=== PATIENT | male | born 1935 | race African-American/Black ===

== ENCOUNTER 2018-05-22 12:14 | Inpatient (IN) | payer MEDICARE, OTHER ==
[~2018-05-22] VITALS: Ht 188 cm; Wt 81.6 kg
[2018-05-22] MEDS ORDERED: NITROGLYCERIN 0.4 MG/TAB BOTTLE SL ONE (12:30)
[2018-05-22] MEDS ORDERED: ASPIRIN 81 MG TAB.CHEW PO ONE (12:30)
[2018-05-22] MEDS ORDERED: ASPIRIN 325 MG TABLET ONE (12:38)
[2018-05-22] MEDS ORDERED: NITROGLYCERIN 0.4 MG/TAB BOTTLE ONE (12:38)
[2018-05-22 12:44] LABS: BASOPHILS % (AUTO) 0.6 % (0.0-2.0); EOSINOPHILS % (AUTO) 2.1 % (0.0-6.0); HEMATOCRIT 44 % (39-51); HEMOGLOBIN 13.8 g/dL (13.5-17.5); LYMPHOCYTES # (AUTO) 1.4 /CMM (0.8-4.8); LYMPHOCYTES % (AUTO) 32.8 % (20.0-44.0); MEAN CORPUSCULAR HEMOGLOBIN 27 PG (26.0-33.0); MEAN CORPUSCULAR HGB CONC 31 g/dl (31.0-36.0); MEAN CORPUSCULAR VOLUME 85 fL (80-96); MONOCYTES # (AUTO) 0.3 /CMM (0.1-1.30); NEUTROPHILS # (AUTO) 2.4 /CMM (1.8-8.9); NEUTROPHILS % (AUTO) 57.5 % (43.0-81.0); PLATELET COUNT (AUTO) 189 /CMM (150-450); RDW COEFFICIENT OF VARIATION 12.2 (11.5-15.0); WHITE BLOOD COUNT (AUTO) 4.2 K/uL (4.3-11.0)
[2018-05-22 12:49] LABS: CALCIUM, SERUM 9.2 mg/dL (8.5-10.1); CARBON DIOXIDE 32 mmol/L (21-32); CHLORIDE 109 mmol/L (98-107); CREATININE 1.3 mg/dL (0.6-1.3); GLUCOSE 92 mg/dL (74-106); POTASSIUM 4.2 mmol/L (3.5-5.1); SODIUM SERUM 140 mmol/L (136-145); UREA NITROGEN, BLOOD 19 mg/dL (7-18)
[2018-05-22 12:52] LABS: INR 1.02 (0.85-1.15)
[2018-05-22 12:57] LABS: TROPONIN I < 0.017 ng/mL (0.00-0.056)
[2018-05-22] MEDS ORDERED: MORPHINE SULFATE INJ 2 MG/ML DISP.SYRIN IV ONE (13:00)
[2018-05-22] MEDS ORDERED: ONDANSETRON HCL/PF - ER 4 MG/2 ML VIAL IV ONE (13:00)
--- NOTE | 2018-05-22 13:00 | NUR ---
PT TO ED DT CHEST PAIN, 3/10, RADIATING TO LEFT ARM X 3 DAYS.VSS
[2018-05-22] MEDS ORDERED: ONDANSETRON HCL/PF 4 MG/2 ML VIAL ONE (13:01)
[2018-05-22] MEDS ORDERED: MORPHINE SULFATE INJ 4 MG/ML DISP.SYRIN ONE (13:01)
[2018-05-22 13:02] LABS: B-TYPE NATRIURETIC PEPTIDE 210 PG/ML (0-125)
[2018-05-22] MEDS ORDERED: ZOLPIDEM TARTRATE 5 MG TABLET PO PRN (14:30)
[2018-05-22] MEDS ORDERED: ACETAMINOPHEN 325 MG TABLET PO PRN (14:30)
[2018-05-22] MEDS ORDERED: MORPHINE SULFATE INJ 2 MG/ML DISP.SYRIN IV PRN (14:30)
[2018-05-22] MEDS ORDERED: MAG HYDROX/AL HYDROX/SIMETH 30 ML UDC PO PRN (14:30)
[2018-05-22] MEDS ORDERED: ONDANSETRON HCL/PF 4 MG/2 ML VIAL IVP PRN (14:30)
[2018-05-22] MEDS ORDERED: Z GUARD REMEDY 2 OZ OINT TP PRN (14:30)
[2018-05-22] MEDS ORDERED: HYDROCODONE/APAP 5/325MG 1 EACH TABLET PO PRN (14:30)
[2018-05-22] MEDS ORDERED: MAGNESIUM HYDROXIDE 30 ML UDC PO PRN (14:30)
--- NOTE | 2018-05-22 14:30 | NUR ---
telephone triage nursern emergency room notes Admitted a 82 years old male patient who came in via gurney accompanied by ER nurse, patient came in due to Chest pain, alert and oriented x 4, verbally responsive and able to make needs known. No complaint of pain or discomfort noted. Lungs are clear upon auscultation, no abdominal distention noted. On room air, with 02 sat of 98%. Dr. Larson aware of the admission and admission orders on file. Skin intact. Vital signs checked and recorded. On tele monitor SB heart rate of 45. Call light with in patient reach, will continue to monitor accordingly.
[2018-05-22] MEDS: ENOXAPARIN SODIUM 40 MG/0.4 ML DISP.SYRIN SQ SCH (15:19)
[2018-05-22 16:00] VITALS: BP_SYST 125; BP_SYST 136; BP_DIAS 67; BP_DIAS 71
[2018-05-22] MEDS: SUCRALFATE 1 G TABLET PO SCH (17:32)
[2018-05-22 18:32] LABS: MAGNESIUM 2.1 mg/dL (1.8-2.4); PHOSPHORUS 3.8 mg/dL (2.5-4.9)
--- NOTE | 2018-05-22 19:16 | NUR ---
telegraph inspector closing notes All needs provided, attended, and anticipated. Patient in stable condition at this time. Endorsed to next shift RN to continue care. Call light with in patient reach. On tele monitor SB heart rate of 47.
--- NOTE | 2018-05-22 19:20 | NUR ---
RN OPENING NOTES RECEIVED PT IN BED, ALERT AND ORIENTED X 3, NO SOB, DENIES CHEST PAIN OR DIZZINESS. IN NO ACUTE DISTRESS AT THIS TIME. ALL PATIENT'S NEEDS ATTENDED TO. ON TELE MONITORING SB @ 48 BPM. PLACED CALL LIGHT WITHIN EASY REACH. BED IN LOW POSITION AND LOCKED IN PLACE. WILL CONTINUE TO MONITOR.
[2018-05-22 19:41] LABS: THYROID STIMULATING HORMONE 2.042 uIU/mL (0.358-3.74)
[2018-05-22 20:00] VITALS: BP 135/70
[2018-05-22] MEDS: IV NS 0.9% 1,000 ML IV PRN (20:42)
[2018-05-23] VITALS: BP 140/72
[2018-05-23 04:00] VITALS: BP 129/69
--- NOTE | 2018-05-23 06:36 | NUR ---
RN CLOSING NOTES PATIENT ASLEEP IN BED BUT EASILY AROUSABLE/. ABLE TO AMBULATE INDEPENDENTLY TO USE THE BATHROOM. PT IN NO ACUTE DISTRESS, NO SOB, NO C/O CHEST PAIN THROUGHOUT THE SHIFT, NO NAUSEA NAD NO DIARRHEA. ALL PATIENT'S NEEDS ATTENDED TO, PLACED BED IN LOW POSITION AND LOCKED IN PLACE. CONTINUES TO RECEIVE IVF HYDRATION ORDERED VIA LAC G#20, INFUSING WELL. PLACED BED IN LOW POSITION AND LOCKED IN PLACE, CALL LIGHT WITHIN EASY REACH. ON TELE MONITORING SB @ 45. WILL ENDORSE TO AM SHIFT NURSE FOR CONTINUITY OF CARE.
[2018-05-23] MEDS: IV NS 0.9% 1,000 ML IV PRN (06:44)
[2018-05-23 06:59] LABS: CHOLESTEROL 88 mg/dL (<200); HDL CHOLESTEROL 36 mg/dL (40-60); LDL 44 mg/dL (0-99); THYROID STIMULATING HORMONE 2.298 uIU/mL (0.358-3.74); TRIGLYCERIDES 121 mg/dL (30-150)
[2018-05-23 07:06] LABS: CALCIUM, SERUM 8.7 mg/dL (8.5-10.1); CARBON DIOXIDE 24 mmol/L (21-32); CHLORIDE 109 mmol/L (98-107); CREATININE 1.4 mg/dL (0.6-1.3); GLUCOSE 98 mg/dL (74-106); MAGNESIUM 1.8 mg/dL (1.8-2.4); POTASSIUM 3.9 mmol/L (3.5-5.1); SODIUM SERUM 143 mmol/L (136-145); UREA NITROGEN, BLOOD 25 mg/dL (7-18)
--- NOTE | 2018-05-23 07:10 | NUR ---
ms rn initial notes Received patient in bed, asleep, head of bed elevated, no SOB or distress noted, on room air and tolerated well. IV intact and patent with IVF infusing well. No facial grimace noted. Alert and oriented x 4, verbally responsive and able to make needs known. Call light with in patient reach, will continue to monitor accordingly.
[2018-05-23 07:36] LABS: HEMATOCRIT 41 % (39-51); HEMOGLOBIN 13.6 g/dL (13.5-17.5); MEAN CORPUSCULAR HEMOGLOBIN 28 PG (26.0-33.0); MEAN CORPUSCULAR HGB CONC 34 g/dl (31.0-36.0); MEAN CORPUSCULAR VOLUME 84 fL (80-96); RED BLOOD CELL COUNT(AUTO) 4.85 MIL/uL (4.5-6.0); WHITE BLOOD COUNT (AUTO) 3.5 K/uL (4.3-11.0)
[2018-05-23 07:37] LABS: BASOPHILS % (AUTO) 1.1 % (0.0-2.0); EOSINOPHILS % (AUTO) 4.9 % (0.0-6.0); LYMPHOCYTES % (AUTO) 43.3 % (20.0-44.0); MONOCYTES % (AUTO) 10.3 % (2.0-12.0); NEUTROPHILS % (AUTO) 40.4 % (43.0-81.0); PLATELET COUNT (AUTO) 149 /CMM (150-450); RDW COEFFICIENT OF VARIATION 13.2 (11.5-15.0)
[2018-05-23] MEDS ORDERED: CILO50TA PO (07:39)
[2018-05-23] MEDS ORDERED: FURO20TA4 PO (07:39)
[2018-05-23] MEDS ORDERED: LOSA50TA21 PO (07:39)
[2018-05-23] MEDS ORDERED: PREG150C PO (07:39)
[2018-05-23] MEDS ORDERED: TAMS0.4C34 PO (07:39)
[2018-05-23 08:00] VITALS: BP 149/73
[2018-05-23] MEDS ORDERED: REGADENOSON 0.4 MG/5 ML DISP.SYRIN IVP ONE (08:00)
[2018-05-23] MEDS ORDERED: PREGABALIN 25 MG CAPSULE PO SCH (09:00)
[2018-05-23] MEDS ORDERED: ASPIRIN EC 81 MG TABLET.DR PO SCH (09:00)
[2018-05-23] MEDS: TAMSULOSIN 0.4 MG CAP.SR.24H PO SCH (09:56)
[2018-05-23] MEDS: SUCRALFATE 1 G TABLET PO SCH ×3 (09:57→16:42)
[2018-05-23] MEDS: LOSARTAN POTASSIUM 50 MG TABLET PO SCH ×2 (09:57→16:43)
[2018-05-23] MEDS: ASPIRIN 81 MG TAB.CHEW PO SCH (09:57)
[2018-05-23] MEDS: ENOXAPARIN SODIUM 40 MG/0.4 ML DISP.SYRIN SQ SCH (09:58)
[2018-05-23 16:00] VITALS: BP 160/74
--- NOTE | 2018-05-23 19:10 | NUR ---
MS RN OPENING NOTE Patient was seen ambulating to the bathroom with steady gait and returned to bed. Patient is AAOx4, breathing on RA with no SOB, and no signs of acute distress. IV in the left AC is connected to NS at 100ml/hr with no signs of leaking or infiltration. Bed is low/locked, two side rails up, and call berger within reach. Patient has no immediate needs or concerns at this time. Will continue to monitor.
--- NOTE | 2018-05-23 19:15 | NUR ---
ms rn closing notes All needs provided, attended, and anticipated. Patient in stable condition. Endorsed to human machine interface engineer RN to continue care. Call light with in patient reach.
[2018-05-23 20:00] VITALS: BP 155/68
[2018-05-23] MEDS ORDERED: IBUPROFEN 400 MG TABLET PO PRN (21:30)
[2018-05-23 21:41] VITALS: BP 155/68
[2018-05-24] MEDS: IV NS 0.9% 1,000 ML IV PRN ×2 (04:59→17:22)
[2018-05-24 06:42] LABS: ALANINE AMINOTRANSFERASE 36 U/L (12-78); ALBUMIN 2.9 g/dL (3.4-5.0); ALKALINE PHOSPHATASE 57 U/L (46-116); ASPARTATE AMINOTRANSFERASE 35 U/L (15-37); BILIRUBIN,TOTAL 0.4 mg/dL (0.2-1.0); CALCIUM, SERUM 9.1 mg/dL (8.5-10.1); CARBON DIOXIDE 24 mmol/L (21-32); CHLORIDE 108 mmol/L (98-107); CREATININE 1.3 mg/dL (0.6-1.3); GLUCOSE 93 mg/dL (74-106); MAGNESIUM 1.8 mg/dL (1.8-2.4); PHOSPHORUS 3.1 mg/dL (2.5-4.9); POTASSIUM 4.3 mmol/L (3.5-5.1); SODIUM SERUM 140 mmol/L (136-145); TOTAL PROTEIN, SERUM 6.3 g/dL (6.4-8.2); UREA NITROGEN, BLOOD 20 mg/dL (7-18)
--- NOTE | 2018-05-24 07:30 | NUR ---
MS RN CLOSING NOTE Patient is sleeping but awakens easily to name. He is oriented x4, breathing comfortably on RA with no SOB, and no signs of acute distress. Patient slept well overnight with no complications and vital signs remain stable. NS at 100ml/hr is running through the left AC with no signs of leaking or infiltration. Bed is low/locked, two side rails up, and call berger is within reach. Patient care endorsed to day shift nurse.
[2018-05-24 08:00] VITALS: BP 148/77
[2018-05-24] MEDS: SUCRALFATE 1 G TABLET PO SCH ×3 (08:18→17:37)
[2018-05-24] MEDS: ASPIRIN 81 MG TAB.CHEW PO SCH (08:18)
[2018-05-24] MEDS: LOSARTAN POTASSIUM 50 MG TABLET PO SCH ×2 (08:19→17:37)
[2018-05-24] MEDS: TAMSULOSIN 0.4 MG CAP.SR.24H PO SCH (08:19)
--- NOTE | 2018-05-24 08:20 | NUR ---
MS RN Initial notes Patient is sitting up in bed, consumed 100% of his breakfast. Breathing on room air, tolerating well, denies SOB. Due meds given, no complaint of chest pain. Per patient he still having some tingling sensation on his mid back, but no pain. Awaits Xray spine today. Call light within reach, will cont to monitor.
[2018-05-24] MEDS: ENOXAPARIN SODIUM 40 MG/0.4 ML DISP.SYRIN SQ SCH (08:24)
--- NOTE | 2018-05-24 11:37 | NUR ---
Social service consult requested by AMANDA Shukla due to pt. living in his car. Pt. is a 82 year old -[place] Citizen male who was admitted to [facility] for chest pain. SW met with pt. bedside. Pt. is alert and oriented x 4. Pt. is soft spoken, cooperative and pleasant with SW during the assessment. Pt. states he has been living in his car for the past year or two by choice. Pt. states he was living at a senior housing ([facility]) but made complaints to the ombudsman regarding his treatment at the facility and left the facility. Pt. receives around $900/ month in SSI. Pt. is but and states he is disappointed in his . Pt. is willing to go a a [facility] facility if deemed appropriate. Pt. is a strong believer of Jevon and states he has great bradley in him. Pt. denies using drugs and alcohol. Pt. smokes approximately 5 to 6 cigarettes per day, but states he is trying to quit. Pt. shows signs of paranoia stating, " someone has poisoned my car and is making me sick." Pt. has a diagnosis of Depression and stated, " I am loaded with Depression." Pt. states he has lost his bradley in people. Pt. denies suicidal and homicidal ideations and adamantly stated, " I am not suicidal, I have Jevon." Pt. denies vision and auditory hallucinations as well. No other social service needs are requested at this time. FEROZ updated AMANDA Shukla and LEONIE Bowman regarding pt. interested in SNF placement.
[2018-05-24 15:33] VITALS: BP 163/82
--- NOTE | 2018-05-24 18:22 | NUR ---
MS RN Closing notes Patient denies chest pain or any discomfort, cooperative and calm. Breathing on room air, no shortness breath. Ambulating independently, voided without difficulty, no stool today. Good appetite, skin intact. Maintained IVF infusing. For psych consult, CM for placement. Call light within reach, will endorse to oncoming RN.
--- NOTE | 2018-05-24 19:15 | NUR ---
RN INITIAL NOTES Patient received in bed, alert, oriented x 4. Breathing even and unlabored. Not in any distress. Denies any pain as of this time. Peripheral IV of NS infusing at 100mL/hr. Patient stable as endorsed by the morning RN. Will continue to monitor accordingly
[2018-05-24 20:00] VITALS: BP 166/82
[2018-05-24 20:46] VITALS: BP 166/82
[2018-05-24 21:23] VITALS: BP 160/74
--- NOTE | 2018-05-24 21:24 | NUR ---
RN NOTES Patient's blood pressure rechecked: 160/74. No complaints of chest pain
[2018-05-25 02:40] VITALS: BP 153/79
--- NOTE | 2018-05-25 02:40 | NUR ---
RN NOTES Patient complaining of chest pain 04/14, sharp, non-radiating. As per patient, "it just happened suddenly." V/S checked: BP- 153/79, HR- 60, SPO2- 96%. 2L oxygen given via NC. Nitroglycerin sublingual 0.4mg given as ordered. V/S rechecked after 5mins: 151/85, HR-61, SPO2-96%. Patient still complaining of pain but "easing a little bit". Another dose of Nitroglycerin 0.4mg given as ordered. V/S checked after 5 mins; BP- 128/79, HR- 62, SPO2- 97%. After second dose, patient denies any pain. V/S rechecked: BP- 128/78, HR-62, SPO2- 97%. Addendum: 05/25/18 at 0315 by KELLEY DE LOS SANTOS RN ADDITIONAL NOTES: Charge nurse Maria Esther deluca
[2018-05-25 02:42] VITALS: BP 151/85
[2018-05-25] MEDS: NITROGLYCERIN 0.4 MG/TAB BOTTLE SL PRN ×2 (02:42→02:47)
[2018-05-25 02:47] VITALS: BP 128/79
[2018-05-25 02:52] VITALS: BP 128/78
[2018-05-25] MEDS: IV NS 0.9% 1,000 ML IV PRN (03:35)
[2018-05-25 06:18] LABS: BASOPHILS % (AUTO) 0.7 % (0.0-2.0); EOSINOPHILS % (AUTO) 4.2 % (0.0-6.0); HEMATOCRIT 43 % (39-51); HEMOGLOBIN 13.5 g/dL (13.5-17.5); LYMPHOCYTES # (AUTO) 1.5 /CMM (0.8-4.8); LYMPHOCYTES % (AUTO) 33.7 % (20.0-44.0); MEAN CORPUSCULAR HEMOGLOBIN 27 PG (26.0-33.0); MEAN CORPUSCULAR HGB CONC 32 g/dl (31.0-36.0); MEAN CORPUSCULAR VOLUME 86 fL (80-96); MONOCYTES # (AUTO) 0.4 /CMM (0.1-1.30); MONOCYTES % (AUTO) 9.7 % (2.0-12.0); NEUTROPHILS # (AUTO) 2.3 /CMM (1.8-8.9); NEUTROPHILS % (AUTO) 51.7 % (43.0-81.0); PLATELET COUNT (AUTO) 171 /CMM (150-450); RDW COEFFICIENT OF VARIATION 13.5 (11.5-15.0); RED BLOOD CELL COUNT(AUTO) 4.96 MIL/uL (4.5-6.0); WHITE BLOOD COUNT (AUTO) 4.4 K/uL (4.3-11.0)
[2018-05-25 06:25] LABS: CARBON DIOXIDE 24 mmol/L (21-32); CHLORIDE 108 mmol/L (98-107); CREATININE 1.2 mg/dL (0.6-1.3); GLUCOSE 92 mg/dL (74-106); MAGNESIUM 1.9 mg/dL (1.8-2.4); PHOSPHORUS 3.2 mg/dL (2.5-4.9); SODIUM SERUM 140 mmol/L (136-145); UREA NITROGEN, BLOOD 21 mg/dL (7-18)
--- NOTE | 2018-05-25 06:39 | NUR ---
RN CLOSING NOTES Patient resting in bed, not in any distress. No more complaints of chest pain. Voiding in urinal- 800mL. Peripheral IV infusing at 100mL/hr. All needs attended to. All due medications given as ordered. Call berger within reach. Bed in low, locked position. Will endorse PATRIZIA to oncoming RN.
--- NOTE | 2018-05-25 07:12 | NUR ---
MS RN NOTES PATIENT IN BED ALERT ORIENTED X 4. NO ACUTE DISTRESS NOTED. BREATHING UNLABORED. NO SOB NOTED. DENIED ANY PAIN. IV ACCESS PATENT AND INTACT, NO REDNESS OR SWELLING NOTED. SAFETY MEASURES IN PLACE.CALL LIGHT WITHIN REACH. WILL CONTINUE TO MONITOR ACCORDINGLY.
[2018-05-25 08:00] VITALS: BP 162/77
[2018-05-25] MEDS: TAMSULOSIN 0.4 MG CAP.SR.24H PO SCH (08:12)
[2018-05-25 08:13] VITALS: BP 154/76
[2018-05-25] MEDS: ASPIRIN 81 MG TAB.CHEW PO SCH (08:13)
[2018-05-25] MEDS: SUCRALFATE 1 G TABLET PO SCH ×2 (08:13→11:56)
[2018-05-25] MEDS: LOSARTAN POTASSIUM 50 MG TABLET PO SCH (08:13)
[2018-05-25] MEDS: ENOXAPARIN SODIUM 40 MG/0.4 ML DISP.SYRIN SQ SCH (08:14)
[2018-05-25] MEDS ORDERED: LOSA50TA3 PO (09:44)
[2018-05-25] MEDS ORDERED: TAMS-12 PO (09:44)
[2018-05-25] MEDS ORDERED: SUCR1TAB PO (09:44)
[2018-05-25] MEDS ORDERED: IBUP-1953 PO (09:44)
[2018-05-25] MEDS ORDERED: ASPI-1169 PO (09:44)
--- NOTE | 2018-05-25 10:18 | NUR ---
FEROZ and wrapper caser Abigail Bowman met with pt. bedside to confirm his discharge plan to [facility]. Pt. agreed to go to [facility] located at [address] [place] [address]. [place] [id number] . Pt. will be discharged today. Pt's RN Perla was updated regarding pt's discharge plan.
--- NOTE | 2018-05-25 14:45 | NUR ---
MS BOOKY NOTES PATIENT DISCHARGED TO [facility] REPORT GIVEN TO PERFECTO SAMAYOA. DISCHARGED INSTRUCTIONS GIVEN TO THE PATIENT, INCLUDING MEDICATIONS AND FOLLOW UP WITH PCP, VERBALIZED UNDERSTANDING. ALL BELONGINGS ACCOUNTED FOR. PATIENT DISCHARGED WITH STABLE VITAL SIGNS, ALERT ORIENTED X 4, NO ACUTE DISTRESS NOTED.PATIENT REFUSED TRANSPORTATION ARRANGEMENT, HE SAID HE HAS HIS CAR AND HE WILL DRIVE HIMSELF TO [facility].PROVIDED SNF NAME, ADDRESS AND PHONE NUMBER. RISK AND BENEFITS GIVEN FOR REFUSAL, VERBALIZED UNDERSTANDING. WHEELED TO THE LOBBY, ASSISTED TO A PRIVATE CAR IN STABLE CONDITION.
== END 2018-05-25 14:40 | DRG 205 ==
LOC: ER 12:16 → TELE 13:51 → MED 05-23 09:22
DX: M94.0 Chondrocostal junction syndrome [Tietze] (principal); N17.0 Acute kidney failure with tubular necrosis; I12.9 Hypertensive chronic kidney disease with stage 1 through stage 4 chronic kidney disease, or unspecified chronic kidney disease; N18.2 Chronic kidney disease, stage 2 (mild); Z59.0 Homelessness; F32.9 Major depressive disorder, single episode, unspecified; F17.210 Nicotine dependence, cigarettes, uncomplicated; M54.16 Radiculopathy, lumbar region; M54.12 Radiculopathy, cervical region; I70.0 Atherosclerosis of aorta; R00.1 Bradycardia, unspecified; G62.89 Other specified polyneuropathies
CPT/HCPCS: 36415; 71045-TC; 72020-TC; 72040-TC; 72074-TC; 80048-TC; 80053-TC; 80061-TC; 83735-TC; 83880; 84100-TC; 84439-TC; 84443-TC; 84484-TC; 85025-TC; 85652-TC; 85730-TC; 87081-TC; 93307-TC; 93970-TC; A4606; A9502; J1650; J2270; J2405; J2785; J7030; Z7610

== ENCOUNTER 2019-02-06 21:38 | Emergency (ER) | payer MEDICARE, MEDICAID ==
[~2019-02-06] VITALS: Ht 188 cm; Wt 79.4 kg
[~2019-02-06 21:38] MED LIST: ASPI-1169 PO; IBUP-1953 PO; LOSA50TA3 PO; SUCR1TAB PO; TAMS-12 PO
--- NOTE | 2019-02-06 23:00 | NUR ---
presented to the ER w/ c/o generalized weakness and abd pain. PMH of hernia. vss. urine obtained and sent to the lab. will cont to monitor ,
[2019-02-06 23:15] LABS: APPEARANCE,URINE Clear (CLEAR); BILIRUBIN,URINE Negative (NEGATIVE); BLOOD, URINE Trace-intact Ery/uL (NEGATIVE); COLOR,URINE Yellow (YELLOW); KETONES,URINE Negative (NEGATIVE); LEUKOCYTE ESTERASE ,URINE Negative (NEGATIVE); NITRITE, URINE Negative (NEGATIVE); PH,URINE 6.5 (5.0-8.0); PROTEIN,URINE Negative (NEGATIVE); UGLUCOSE Negative (NEGATIVE); UROBILINOGEN,URINE 0.2 EU/dL (0.2)
[2019-02-06 23:22] LABS: BASOPHILS # (AUTO) 0.1 /CMM (0.0-0.2); EOSINOPHILS % (AUTO) 4.2 % (0.0-6.0); HEMATOCRIT 42 % (39-51); HEMOGLOBIN 13.6 g/dL (13.5-17.5); LYMPHOCYTES # (AUTO) 1.7 /CMM (0.8-4.8); MEAN CORPUSCULAR HGB CONC 33 g/dl (31.0-36.0); MEAN CORPUSCULAR VOLUME 87 fL (80-96); MONOCYTES # (AUTO) 0.4 /CMM (0.1-1.30); MONOCYTES % (AUTO) 7.9 % (2.0-12.0); NEUTROPHILS # (AUTO) 2.8 /CMM (1.8-8.9); NEUTROPHILS % (AUTO) 53.9 % (43.0-81.0); PLATELET COUNT (AUTO) 158 /CMM (150-450); RED BLOOD CELL COUNT(AUTO) 4.83 MIL/uL (4.5-6.0); WHITE BLOOD COUNT (AUTO) 5.2 K/uL (4.3-11.0)
[2019-02-06 23:29] LABS: CALCIUM, SERUM 9.3 mg/dL (8.5-10.1); CARBON DIOXIDE 32 mmol/L (21-32); CHLORIDE 105 mmol/L (98-107); CREATININE 1.3 mg/dL (0.6-1.3); GLUCOSE 110 mg/dL (74-106); POTASSIUM 3.9 mmol/L (3.5-5.1); SODIUM SERUM 141 mmol/L (136-145); UREA NITROGEN, BLOOD 17 mg/dL (7-18)
[2019-02-06 23:35] LABS: ALANINE AMINOTRANSFERASE 16 U/L (12-78); ALBUMIN 3.4 g/dL (3.4-5.0); ALCOHOL, BLOOD < 3 mg/dL (0-0); ALKALINE PHOSPHATASE 72 U/L (46-116); ASPARTATE AMINOTRANSFERASE 26 U/L (15-37); BILIRUBIN,DIRECT 0.1 mg/dL (0.0-0.2); BILIRUBIN,TOTAL 0.4 mg/dL (0.2-1.0); TOTAL PROTEIN, SERUM 7.2 g/dL (6.4-8.2)
[2019-02-06 23:36] LABS: ACETAMINOPHEN 0 ug/ml (10-30); SALICYLATE 1.6 mg/dL (2.8-20.0)
[2019-02-07] VITALS: BP 153/88
[2019-02-07 00:06] LABS: BACTERIA,URINE Rare /HPF (None Seen); SQUAMOUS EPITHELIAL CELL,UR Rare /HPF (None Seen); WBC,URINE 0-2 /HPF (0-3)
--- NOTE | 2019-02-07 00:38 | NUR ---
Patient refused written and verbal discharge instructions. Patient is ambulatory with steady gait. Refuses offer of [facility] placement., food, snacks and clothing./ stated he will arrange his own transportation.
== END 2019-02-07 00:44 | disposition home or self-care (01) ==
LOC: ER 21:40
DX: R06.02 Shortness of breath (principal); R20.8 Other disturbances of skin sensation; F17.210 Nicotine dependence, cigarettes, uncomplicated; I10 Essential (primary) hypertension; Z88.0 Allergy status to penicillin; Z59.0 Homelessness; Z79.82 Long term (current) use of aspirin; Z79.899 Other long term (current) drug therapy
CPT/HCPCS: 36415; 71045; 80048; 80076; 80305; 80307; 80329; 81001; 85025; 93005; 99284; 99406; G0480; 81000-TC

== ENCOUNTER 2019-04-30 15:36 | Inpatient (IN) | payer OTHER, MEDICAID ==
[2019-04-30] MEDS ORDERED: ASPIRIN 325 MG TABLET PO ONE (16:00)
[2019-04-30] MEDS ORDERED: ASPIRIN 325 MG TABLET ONE (16:01)
[2019-04-30] MEDS ORDERED: AMLO5TAB9 PO (16:24)
[2019-04-30] MEDS ORDERED: PREG150C PO (16:24)
[2019-04-30] MEDS ORDERED: MAG HYDROX/AL HYDROX/SIMETH 30 ML UDC PO PRN (18:30)
[2019-04-30] MEDS ORDERED: MAGNESIUM HYDROXIDE 30 ML UDC PO PRN (18:30)
[2019-04-30] MEDS ORDERED: Z GUARD REMEDY 2 OZ OINT TP PRN (18:30)
[2019-04-30] MEDS ORDERED: ACETAMINOPHEN 325 MG TABLET PO PRN (18:30)
[2019-04-30] MEDS ORDERED: ONDANSETRON HCL/PF 4 MG/2 ML VIAL IVP PRN (18:30)
[2019-04-30] MEDS: AMLODIPINE BESYLATE 5 MG TABLET PO SCH (22:34)
[2019-04-30] MEDS: HYDROCODONE/APAP 5/325MG 1 EACH TABLET PO PRN (22:35)
[2019-04-30] MEDS: HEPARIN SODIUM, PORCINE 5000 UNITS/1 ML VIAL SQ SCH (22:36)
[2019-04-30] MEDS: IV NS 0.9% 1,000 ML IV PRN (22:37)
[2019-05-01] MEDS ORDERED: PREGABALIN 25 MG CAPSULE PO PRN ×2 (07:30→22:00)
[2019-05-01] MEDS: FAMOTIDINE (20 MG) 20 MG TABLET PO SCH (08:59)
[2019-05-01] MEDS: HEPARIN SODIUM, PORCINE 5000 UNITS/1 ML VIAL SQ SCH ×3 (08:59→16:22)
[2019-05-01] MEDS ORDERED: ASPIRIN 81 MG TAB.CHEW PO SCH (09:00)
[2019-05-01] MEDS ORDERED: LOSARTAN POTASSIUM 50 MG TABLET PO SCH (09:00)
[2019-05-01] MEDS ORDERED: IOHEXOL-350 100 ML VIAL IV ONE ×2 (17:15→18:04)
[2019-05-01] MEDS: IV NS 0.9% 1,000 ML IV PRN (20:36)
[2019-05-01] MEDS: AMLODIPINE BESYLATE 5 MG TABLET PO SCH (21:35)
[2019-05-02] MEDS: hydrALAZINE HCL 25 MG TABLET PO PRN ×2 (04:29→04:34)
[2019-05-02] MEDS: FAMOTIDINE (20 MG) 20 MG TABLET PO SCH (09:43)
[2019-05-02] MEDS: HEPARIN SODIUM, PORCINE 5000 UNITS/1 ML VIAL SQ SCH ×2 (09:45→16:15)
[2019-05-02] MEDS: hydrALAZINE HCL 50 MG TABLET PO SCH ×2 (09:47→16:14)
[2019-05-02] MEDS: HYDROCODONE/APAP 5/325MG 1 EACH TABLET PO PRN (14:37)
[2019-05-02] MEDS: AMLODIPINE BESYLATE 5 MG TABLET PO SCH (21:42)
[2019-05-03] MEDS: hydrALAZINE HCL 50 MG TABLET PO SCH (08:44)
[2019-05-03] MEDS: HEPARIN SODIUM, PORCINE 5000 UNITS/1 ML VIAL SQ SCH (08:44)
[2019-05-03] MEDS: FAMOTIDINE (20 MG) 20 MG TABLET PO SCH (08:44)
== END 2019-05-03 10:56 | disposition home or self-care (01) | DRG 391 ==
DX: K21.9 Gastro-esophageal reflux disease without esophagitis (principal); N17.0 Acute kidney failure with tubular necrosis; Z59.0 Homelessness; I10 Essential (primary) hypertension; F17.210 Nicotine dependence, cigarettes, uncomplicated; Z91.14 Patient's other noncompliance with medication regimen; Z79.82 Long term (current) use of aspirin

== ENCOUNTER 2019-05-05 22:07 | Emergency (ER) | payer OTHER, MEDICAID ==
[~2019-05-05 22:07] MED LIST changes: +AMLO5TAB9 PO; +PREG150C PO
[2019-05-05] MEDS ORDERED: NITROGLYCERIN 0.4 MG/TAB BOTTLE SL ONE (23:30)
[2019-05-05] MEDS ORDERED: ASPIRIN 325 MG TABLET PO ONE (23:30)
[2019-05-05] MEDS ORDERED: NITROGLYCERIN 0.4 MG/TAB BOTTLE ONE (23:36)
[2019-05-05] MEDS ORDERED: ASPIRIN 325 MG TABLET ONE (23:37)
== END 2019-05-06 04:57 | disposition home or self-care (01) ==
DX: R07.89 Other chest pain (principal); I10 Essential (primary) hypertension; F17.200 Nicotine dependence, unspecified, uncomplicated; Z59.0 Homelessness; Z88.0 Allergy status to penicillin; Z60.2 Problems related to living alone; Z79.899 Other long term (current) drug therapy; Z79.82 Long term (current) use of aspirin

== ENCOUNTER 2019-08-23 09:04 | Emergency (ER) | payer BC, OTHER ==
[~2019-08-23] VITALS: Ht 188 cm; Wt 78.9 kg
[~2019-08-23 09:04] MED LIST changes: -IBUP-1953 PO; -SUCR1TAB PO; -TAMS-12 PO
--- NOTE | 2019-08-23 09:07 | NUR ---
PT BIB SELF C/O COUGH AND CONGESTION,BODY ACHES FOR 1 MONTH, PT IS AAOX4, NOT IN RESPIRATORY DISTRESS, HOOKED TO MONITOR, KEPT RESTED AND COMFORTABLE,WILL CONTINUE TO MONITOR.
--- NOTE | 2019-08-23 09:19 | NUR ---
SEEN AND EXAMINED BY
[2019-08-23] MEDS ORDERED: ALBUTEROL FS 2.5 MG/3 ML VIAL.NEB NEB ONE (09:30)
[2019-08-23] MEDS ORDERED: IPRATROPIUM NEB FS 0.5 MG/2.5 ML AMPUL.NEB NEB ONE (09:30)
--- NOTE | 2019-08-23 09:30 | NUR ---
IV LINE ESTABLISHED. BLOOD DRAWN AND SENT TO LAB.
--- NOTE | 2019-08-23 09:34 | NUR ---
CAR TRIMMER AT BEDSIDE FOR XRAY.
[2019-08-23] MEDS ORDERED: ALBUTEROL FS 2.5 MG/3 ML VIAL.NEB ONE (09:38)
[2019-08-23] MEDS ORDERED: IPRATROPIUM NEB FS 0.5 MG/2.5 ML AMPUL.NEB ONE (09:38)
--- NOTE | 2019-08-23 09:38 | NUR ---
RT AT BEDSIDE FOR BREATHING TREATMENT.
[2019-08-23 09:39] LABS: BASOPHILS # (AUTO) 0.1 /CMM (0.0-0.2); BASOPHILS % (AUTO) 2.2 % (0.0-2.0); EOSINOPHILS % (AUTO) 1.9 % (0.0-6.0); HEMATOCRIT 42 % (39-51); HEMOGLOBIN 13.5 g/dL (13.5-17.5); LYMPHOCYTES # (AUTO) 0.7 /CMM (0.8-4.8); LYMPHOCYTES % (AUTO) 25.1 % (20.0-44.0); MEAN CORPUSCULAR HGB CONC 32 g/dl (31.0-36.0); MEAN CORPUSCULAR VOLUME 86 fL (80-96); MONOCYTES # (AUTO) 0.5 /CMM (0.1-1.30); MONOCYTES % (AUTO) 18.1 % (2.0-12.0); NEUTROPHILS # (AUTO) 1.6 /CMM (1.8-8.9); NEUTROPHILS % (AUTO) 52.7 % (43.0-81.0); PLATELET COUNT (AUTO) 113 /CMM (150-450); RED BLOOD CELL COUNT(AUTO) 4.89 MIL/uL (4.5-6.0)
[2019-08-23 09:48] LABS: CALCIUM, SERUM 9.1 mg/dL (8.5-10.1); CARBON DIOXIDE 29 mmol/L (21-32); CHLORIDE 107 mmol/L (98-107); CREATININE 1.3 mg/dL (0.6-1.3); GLUCOSE 76 mg/dL (74-106); POTASSIUM 3.8 mmol/L (3.5-5.1); SODIUM SERUM 143 mmol/L (136-145); UREA NITROGEN, BLOOD 24 mg/dL (7-18)
[2019-08-23 10:01] LABS: ALANINE AMINOTRANSFERASE 30 U/L (12-78); ALKALINE PHOSPHATASE 57 U/L (46-116); ASPARTATE AMINOTRANSFERASE 40 U/L (15-37); BILIRUBIN,TOTAL 0.9 mg/dL (0.2-1.0)
[2019-08-23 10:02] LABS: ALBUMIN 3.1 g/dL (3.4-5.0); BILIRUBIN,DIRECT 0.3 mg/dL (0.0-0.2)
[2019-08-23 11:33] VITALS: BP 147/76
--- NOTE | 2019-08-23 11:34 | NUR ---
Patient discharged to home in stable condition. Written and verbal after care instructions given. Patient verbalizes understanding of instruction. IV removed. Catheter intact and site benign. Pressure and 4x4 applied to site. No bleeding noted.
[2019-08-23 12:12] LABS: EOSINOPHILS % (MANUAL) 2 % (0-4); LYMPHOCYTES % (MANUAL) 22 % (16-48); MONOCYTES % (MANUAL) 17 % (0-11.0); NEUTROPHILS % (MANUAL) 59 (42-76)
== END 2019-08-23 11:34 | disposition home or self-care (01) ==
LOC: ER 09:05
DX: J11.1 Influenza due to unidentified influenza virus with other respiratory manifestations (principal); I10 Essential (primary) hypertension; F17.200 Nicotine dependence, unspecified, uncomplicated; Z88.0 Allergy status to penicillin; Z59.0 Homelessness; Z79.899 Other long term (current) drug therapy; Z79.82 Long term (current) use of aspirin
CPT/HCPCS: 36415; 71045-TC; 80048-TC; 80076-TC; 83605-TC; 84484-TC; 85025-TC; 85730-TC; 87040-TC

== ENCOUNTER 2022-02-02 06:25 | Inpatient (IN) | payer MEDICARE, OTHER ==
[~2022-02-02] VITALS: Ht 66 cm; Wt 69.4 kg
[~2022-02-02 06:25] MED LIST changes: +AMLO-212 PO; -AMLO5TAB9 PO
--- NOTE | 2022-02-02 06:31 | NUR ---
[id number]. L CHEST PAIN RADIATING TO L ARM 04/14 SHARP CONSTANT X 2 DAYS W/ SOB. PATIENT IN BED 02 ON MONITOR AND POX, AWAITING MD BASHIR. PATIENT ALERT AND ORIENTED X3. AMBULATORY BUT BROUGHT IN BY STRETCHER.
--- NOTE | 2022-02-02 06:38 | NUR ---
BLOOD AND CULTURES DONE AND SENT TO LAB
--- NOTE | 2022-02-02 06:38 | NUR ---
PROVIDED PATIENT WITH A URINAL
--- NOTE | 2022-02-02 06:38 | NUR ---
COVID SWAB DONE AND SENT TO LAB
[2022-02-02 07:06] LABS: ALANINE AMINOTRANSFERASE 50 U/L (12-78); ALBUMIN 2.4 g/dL (3.4-5.0); ALKALINE PHOSPHATASE 79 U/L (46-116); ASPARTATE AMINOTRANSFERASE 85 U/L (15-37); BILIRUBIN,DIRECT 0.4 mg/dL (0.0-0.2); BILIRUBIN,TOTAL 0.6 mg/dL (0.2-1.0); CALCIUM, SERUM 8.8 mg/dL (8.5-10.1); CARBON DIOXIDE 27 mmol/L (21-32); CHLORIDE 108 mmol/L (98-107); CREATININE 1.4 mg/dL (0.6-1.3); GLUCOSE 100 mg/dL (74-106); POTASSIUM 3.6 mmol/L (3.5-5.1); SODIUM SERUM 139 mmol/L (136-145); TOTAL PROTEIN, SERUM 7.8 g/dL (6.4-8.2); UREA NITROGEN, BLOOD 21 mg/dL (7-18)
[2022-02-02 07:31] LABS: BASOPHILS # (AUTO) 0.1 K/uL (0.0-0.2); BASOPHILS % (AUTO) 1.4 % (0.0-2.0); EOSINOPHILS % (AUTO) 3.7 % (0.0-6.0); HEMATOCRIT 35 % (39-51); HEMOGLOBIN 11.1 g/dL (13.5-17.5); LYMPHOCYTES # (AUTO) 1.3 K/uL (0.8-4.8); LYMPHOCYTES % (AUTO) 25.2 % (20.0-44.0); MEAN CORPUSCULAR HGB CONC 32 g/dl (31.0-36.0); MEAN CORPUSCULAR VOLUME 79 fL (80-96); MONOCYTES # (AUTO) 0.5 K/uL (0.1-1.30); MONOCYTES % (AUTO) 10.2 % (2.0-12.0); NEUTROPHILS % (AUTO) 59.5 % (43.0-81.0); PLATELET COUNT (AUTO) 310 K/uL (150-450); RED BLOOD CELL COUNT(AUTO) 4.47 MIL/uL (4.5-6.0)
[2022-02-02] MEDS ORDERED: LOSA50TA39 PO (07:50)
[2022-02-02] MEDS ORDERED: ASPI-1420 PO (07:50)
[2022-02-02] MEDS ORDERED: MAG HYDROX/AL HYDROX/SIMETH 30 ML UDC PO PRN ×2 (10:30→13:15)
[2022-02-02] MEDS ORDERED: ONDANSETRON HCL/PF 4 MG/2 ML VIAL IVP PRN ×2 (10:30→13:15)
[2022-02-02] MEDS ORDERED: Z GUARD REMEDY 4 OZ OINT TP PRN ×2 (10:30→13:15)
[2022-02-02] MEDS ORDERED: ZOLPIDEM TARTRATE 5 MG TABLET PO PRN ×2 (10:30→13:15)
[2022-02-02] MEDS ORDERED: IV NS 0.9% 1,000 ML IV PRN (10:30)
[2022-02-02] MEDS ORDERED: ACETAMINOPHEN 325 MG TABLET PO PRN ×2 (10:30→13:15)
[2022-02-02 11:20] LABS: ALBUMIN 2.1 g/dL (3.4-5.0); BILIRUBIN,DIRECT 0.4 mg/dL (0.0-0.2); BILIRUBIN,TOTAL 0.7 mg/dL (0.2-1.0); TOTAL PROTEIN, SERUM 6.9 g/dL (6.4-8.2)
--- NOTE | 2022-02-02 12:45 | NUR ---
ROOM 115-1
[2022-02-02 12:57] LABS: IRON, SERUM 35 ug/dl (50-175); TOTAL IRON BINDING CAPACITY 274 ug/dl (250-450)
--- NOTE | 2022-02-02 13:07 | NUR ---
REPORT GIVEN TO NURSE ROMAN FOR PATRIZIA
[2022-02-02] MEDS: IV NS 0.9% 1,000 ML IV PRN (18:20)
--- NOTE | 2022-02-02 19:39 | NUR ---
RN OPENING NOTES: RECEIVED PT IN BED, AWAKE, ALERT/ORIENTED X3 AND VERBALLY RESPONSIVE. ON ROOM AIR AND PT TOLERATED WELL. IV ACCESS ON RAC#20G INTACT AND PATENT. NO S/S OF INFILTRATIONS. RUNNING NS 75CC/HR. NO C/O PAIN OR DISCOMFORT. NO ACUTE DISTRESS. PT IS ABLE TO AMBULATE TO THE BATHROOM. ALL SAFETY MEASURES IN PLACE. SIDE RAILS UP X2, BED IN LOWEST POSITION AND LOCKED. PLACE CALL LIGHT WITH IN REACH. WILL CONTINUE TO MONITOR
[2022-02-02 20:00] VITALS: BP 152/77
--- NOTE | 2022-02-02 20:27 | NUR ---
RN NOTES: PT C/O GENERALIZED BODY ACHE, 3/10 PAIN SCALE. TYLENOL 325 MG 2 TABS GIVEN PER PRN ORDER. WILL CONTINUE TO MONITOR
[2022-02-03] VITALS (8 sets, daily range): BP systolic 116–157; BP diastolic 62–82
--- NOTE | 2022-02-03 06:45 | NUR ---
RN CLOSING NOTES: PT IN BED, SLEEPING BUT EASILY AROUSABLE, ALERT/ORIENTED X3 AND VERBALLY RESPONSIVE. ON ROOM AIR AND PT TOLERATED WELL. O2 SAT 96%. IV ACCESS ON RAC#20G INTACT AND PATENT. NO S/S OF INFILTRATIONS. RUNNING NS 75CC/HR. NO C/O PAIN OR DISCOMFORT. NO ACUTE DISTRESS. ALL DUE MEDS GIVEN GIVEN ORDERED. ALL SAFETY MEASURES IN PLACE. SIDE RAILS UP X2, BED IN LOWEST POSITION AND LOCKED. PLACE CALL LIGHT WITH IN REACH. WILL ENDORSE TO MORNING SHIFT NURSE.
--- NOTE | 2022-02-03 07:27 | NUR ---
RN AM NOTE PATIENT IS ALERT , ORIENTED TIMES 3 , RESPONSIVE , HAS NS RUNNING AT 75 ML PER HR , IV ACCESS RAC 20 G , NO S/S OF INFILTRATION, INTACT.PATIENT IS ON ROOM AIR, BREATHING EVEN AND UNLABORED, NO ACUTE DISTRESS, DO NOT COMPLAINED OF PAIN .ALL SAFETY MEASURES IN PLACE. SIDE RAILS UP X2, BED IN LOWEST POSITION AND LOCKED. PLACE CALL LIGHT WITH IN REACH. WILL CONTINUE TO MONITOR
[2022-02-03] MEDS: IV NS 0.9% 1,000 ML IV PRN ×2 (07:46→22:08)
[2022-02-03] MEDS: AMLODIPINE BESYLATE 5 MG TABLET PO SCH (08:07)
[2022-02-03] MEDS: LOSARTAN POTASSIUM 50 MG TABLET PO SCH (08:08)
[2022-02-03] MEDS: ASPIRIN EC 81 MG TABLET.DR PO SCH (08:08)
[2022-02-03] MEDS ORDERED: LOSARTAN POTASSIUM 50 MG TABLET PO SCH (09:00)
[2022-02-03] MEDS ORDERED: ASPIRIN EC 81 MG TABLET.DR PO SCH (09:00)
[2022-02-03] MEDS ORDERED: AMLODIPINE BESYLATE 5 MG TABLET PO SCH (09:00)
[2022-02-03 11:07] LABS: BASOPHILS % (AUTO) 1.1 % (0.0-2.0); HEMATOCRIT 33 % (39-51); HEMOGLOBIN 10.6 g/dL (13.5-17.5); LYMPHOCYTES # (AUTO) 0.9 K/uL (0.8-4.8); LYMPHOCYTES % (AUTO) 21.2 % (20.0-44.0); MEAN CORPUSCULAR HGB CONC 32 g/dl (31.0-36.0); MEAN CORPUSCULAR VOLUME 78 fL (80-96); MONOCYTES # (AUTO) 0.4 K/uL (0.1-1.30); MONOCYTES % (AUTO) 8.3 % (2.0-12.0); NEUTROPHILS # (AUTO) 2.8 K/uL (1.8-8.9); NEUTROPHILS % (AUTO) 64.4 % (43.0-81.0); PLATELET COUNT (AUTO) 271 K/uL (150-450); RED BLOOD CELL COUNT(AUTO) 4.29 MIL/uL (4.5-6.0); WHITE BLOOD COUNT (AUTO) 4.4 K/uL (4.3-11.0)
[2022-02-03 11:20] LABS: CALCIUM, SERUM 8.4 mg/dL (8.5-10.1); CARBON DIOXIDE 26 mmol/L (21-32); CHLORIDE 108 mmol/L (98-107); CREATININE 1.3 mg/dL (0.6-1.3); GLUCOSE 114 mg/dL (74-106); POTASSIUM 3.8 mmol/L (3.5-5.1); SODIUM SERUM 140 mmol/L (136-145); UREA NITROGEN, BLOOD 20 mg/dL (7-18)
--- NOTE | 2022-02-03 11:50 | NUR ---
RN NOTE PATIENT IS AT XR STUDY , UNABLE TO CHECK VS Addendum: 02/03/22 at 1819 by PRICILLA COLINDRES RN RN NOTE DISREGARD NOTE ABOVE WRONG CHARTING
--- NOTE | 2022-02-03 18:37 | NUR ---
RN CLOSING NOTE PATIENT IS ALERT , ORIENTED TIMES 3 , VERBAL. PATIENT IS AT ROOM AIR BREATHING UNLABORED WITH O2 SAT 96 NO ACUTE DISTRESS. SR 65. IV ACCESS SITE WAS CHANGED TO THE LAC DUE TO WAS DISLODGED . IV SITE INTACT AND NS IS RUNNING AT 75 ML PER HR. ALL MEDS WERE GIVEN PER MD ORDER. NEW ORDER TO PHYSICAL THERAPY WAS RECEIVED TODAY.ALL SAFETY MEASURES IN PLACE. BAD IS LOWEST POSITION AND LOCKED.SIDE RAILS UP. LACC LIGHT WITHIN REACH.
--- NOTE | 2022-02-03 19:40 | NUR ---
RN OPENING NOTES: RECEIVED PT IN BED, AWAKE, ALERT/ORIENTED X3 AND VERBALLY RESPONSIVE. ON ROOM AIR AND PT TOLERATED WELL. IV ACCESS ON LAC#22G INTACT AND PATENT. NO S/S OF INFILTRATIONS. RUNNING NS 75CC/HR. NO C/O PAIN OR DISCOMFORT. NO ACUTE DISTRESS. ABLE TO USE URINAL. ALL SAFETY MEASURES IN PLACE. SIDE RAILS UP X2, BED IN LOWEST POSITION AND LOCKED. PLACE CALL LIGHT WITH IN REACH. WILL CONTINUE TO MONITOR
[2022-02-04] VITALS: BP 143/104
[2022-02-04 04:00] VITALS: BP 159/76
[2022-02-04 06:28] LABS: EOSINOPHILS % (AUTO) 4.8 % (0.0-6.0); HEMATOCRIT 33 % (39-51); HEMOGLOBIN 10.6 g/dL (13.5-17.5); LYMPHOCYTES # (AUTO) 1.1 K/uL (0.8-4.8); LYMPHOCYTES % (AUTO) 22.6 % (20.0-44.0); MEAN CORPUSCULAR HGB CONC 32 g/dl (31.0-36.0); MEAN CORPUSCULAR VOLUME 78 fL (80-96); MONOCYTES # (AUTO) 0.6 K/uL (0.1-1.30); MONOCYTES % (AUTO) 11.2 % (2.0-12.0); NEUTROPHILS % (AUTO) 60.4 % (43.0-81.0); PLATELET COUNT (AUTO) 256 K/uL (150-450); RED BLOOD CELL COUNT(AUTO) 4.26 MIL/uL (4.5-6.0)
--- NOTE | 2022-02-04 06:34 | NUR ---
RN CLOSING NOTES: PT IN BED, AWAKE, ALERT/ORIENTED X3 AND VERBALLY RESPONSIVE. ON ROOM AIR AND PT TOLERATED WELL. O2 SAT 99%. IV ACCESS ON LAC#22G INTACT AND PATENT. NO S/S OF INFILTRATIONS. RUNNING NS 75CC/HR. NO C/O PAIN OR DISCOMFORT. NO ACUTE DISTRESS. ALL DUE MEDS GIVEN GIVEN ORDERED. ABLE TO GO TO THE BATHROOM WITH ASSIST FOR BM. ALL SAFETY MEASURES IN PLACE. SIDE RAILS UP X2, BED IN LOWEST POSITION AND LOCKED. PLACE CALL LIGHT WITH IN REACH. WILL ENDORSE TO MORNING SHIFT NURSE.
[2022-02-04 07:07] LABS: CALCIUM, SERUM 8.6 mg/dL (8.5-10.1); CARBON DIOXIDE 24 mmol/L (21-32); CHLORIDE 109 mmol/L (98-107); CREATININE 1.1 mg/dL (0.6-1.3); GLUCOSE 94 mg/dL (74-106); MAGNESIUM 1.9 mg/dL (1.8-2.4); SODIUM SERUM 140 mmol/L (136-145); UREA NITROGEN, BLOOD 14 mg/dL (7-18)
[2022-02-04 08:00] VITALS: BP 142/81
[2022-02-04] MEDS: AMLODIPINE BESYLATE 5 MG TABLET PO SCH (09:54)
[2022-02-04] MEDS: ASPIRIN EC 81 MG TABLET.DR PO SCH (09:54)
[2022-02-04] MEDS: LOSARTAN POTASSIUM 50 MG TABLET PO SCH (09:54)
[2022-02-04 12:00] VITALS: BP 139/67
--- NOTE | 2022-02-04 16:29 | NUR ---
SHIFT SUMMARY VSS, AFEBRILE. DENIES ANY PAIN THROUGHOUT THE SHIFT. A/OX 4. ABLE TO MAKE NEEDS KNOWN. SR ON THE TELEMONITOR. INDEPENDENT WITH REPOSITIONING. SAFETY MEASURES MAITAINED. BED IN LOWEST POSITION, BRAKES LOCKED. SIDE RAILS UP X2. CALL LIGHT WITHIN REACH. DISCHARGE INSTRUCTIONS AND HEALTH TEACHINGS GIVEN, PT VERBALIZED UNDERSTANDING. PATIENT WILL BE GOING TO BEMIDJI'S BOARD AND CARE. IV ACCESS AND WRISTBAND REMOVED.
== END 2022-02-04 16:30 | DRG 205 ==
LOC: ER 06:26 → TELE1 13:11
PROVIDERS: ADMIT Nurse Practitioner Acute Care; ATTEND Nurse Practitioner Acute Care
DX: M94.0 Chondrocostal junction syndrome [Tietze] (principal); N17.0 Acute kidney failure with tubular necrosis; E44.0 Moderate protein-calorie malnutrition; C22.9 Malignant neoplasm of liver, not specified as primary or secondary; Z20.822 Contact with and (suspected) exposure to COVID-19; Z59.00 Homelessness unspecified; I10 Essential (primary) hypertension; Z88.0 Allergy status to penicillin; Z79.82 Long term (current) use of aspirin; Z79.899 Other long term (current) drug therapy; D50.9 Iron deficiency anemia, unspecified; E88.09 Other disorders of plasma-protein metabolism, not elsewhere classified; F17.200 Nicotine dependence, unspecified, uncomplicated
CPT/HCPCS: 36415; 71045-TC; 80048-TC; 80076-TC; 83540-TC; 83605-TC; 83735-TC; 84100-TC; 84484-TC; 85025-TC; 85730-TC; 87040-TC; C9803; G0378; J7030